=== PATIENT | female | born 1970 | race Two or more races ===

== ENCOUNTER 2024-02-27 20:14 | Inpatient (IN) | payer OTHER ==
[~2024-02-27] VITALS: Ht 157.5 cm; Wt 49.9 kg
[2024-02-27 20:29] LABS: HEMATOCRIT 46.9 % (36.0-45.00); HEMOGLOBIN 16.1 g/dL (12.0-15.00); MEAN CORPUSCULAR HEMOGLOBIN 32.3 pg (27.00-32.0); MEAN CORPUSCULAR HGB CONC 34.3 g/dl (32.0-36.0); PLATELET COUNT 345 K/uL (150-450); RED BLOOD COUNT 4.99 M/uL (4.00-6.00)
[2024-02-27] MEDS ORDERED: 0.9 % SODIUM CHLORIDE 1,000 ML IV SCH (20:30)
[2024-02-27] MEDS ORDERED: FAMOtidine 10 MG/ML (4ML VIAL) IV ONE (20:30)
[2024-02-27] MEDS ORDERED: METHYLPREDNISOLONE SOD SUCC 40 MG VIAL IV ONE (20:30)
[2024-02-27] MEDS ORDERED: LEVALBUTEROL HCL 0.63 MG/3 ML SOLUTION IH SCH (20:30)
[2024-02-27] MEDS ORDERED: PIPERACILLIN/TAZOBACTAM SODIUM 4.5 GM VIAL IV ONE (20:30)
[2024-02-27 20:46] LABS: PARTIAL THROMBOPLASTIN TIME 23.5 SECONDS (22.0-34.0); PROTHROMBIN TIME 10.9 SECONDS (9.0-11.5)
[2024-02-27 20:51] LABS: ALBUMIN 4.1 gm/dL (3.4-5.0); BILIRUBIN TOTAL 0.62 mg/dL (0.3-1.2); CREATININE SERUM 0.97 mg/dL (0.55-1.02); GFR 60.3; GLOBULINA 3.7 G/DL (2.4-3.5); TOTAL PROTEIN 7.8 gm/dL (6.4-8.2)
[2024-02-27 21:06] LABS: POTASSIUM 4.08 mEq/L (3.5-5.1)
--- NOTE | 2024-02-27 21:19 | NUR ---
SE RECIBE PTE ALERTA Y ORIENTADA EN AMBULANCIA LA CUAL REFIERE VENIR POR POR NEAR DROWNING EN PLAYA. SE OBSERVA A PTE [place] ORACIONES COMPLETAS AL MOMENTO DE TRIAGE. SE MIDEN S/V A PTE, PTE SATURANDO 82% CON CN COLOCADA POR PERSONAL PARAMEDICO. PTE SE OBSERVA CON ABDOMEN DISTENDIDO. PTE SE UBICA EN UNIDAD DE CHEST PAIN Y SE CONECTA A MONITOR CARDIACO.
[2024-02-27] MEDS ORDERED: PIPERACILLIN/TAZOBACTAM SODIUM 3.375 GM VIAL IV STA (21:20)
--- NOTE | 2024-02-27 21:33 | NUR ---
SE RECIBE A PACIENTE FEMENINA ALERTA Y ORIENTADA X3 EN AREA DE CHEST PAIN. SE CONECTA A MONITOR CARDIACO Y OXIMETRIA CONTINUA. SE EDUCA A FAMILIAR Y PACIENTE SOBRE PROCESO DE DEVIKA DE MUESTRAS, CANALIZACION Y ADMINISTRACION DE MEDICAMENTOS, REFIEREN ENTENDER. SE CANALIZA A PACIENTE CON #2O EN RT ARM Y SE TEOFILO MUESTRAS DE LABORATORIO BAJO MEDIDAS ASEPTICAS. TERAPIA RESPIRATORIA REALIZA ABGS Y COLOCA TERAPIAS. PACIENTE PENDIENTE A CT YA NOTIFICADO.
[2024-02-27 22:05] LABS: HEMATOCRIT 42.2 % (36.0-45.00); HEMOGLOBIN 14.8 g/dL (12.0-15.00); MEAN CELL VOLUME 91.7 fL (80.00-100.00); MEAN CORPUSCULAR HEMOGLOBIN 32.1 pg (27.00-32.0); PLATELET COUNT 278 K/uL (150-450); RED BLOOD COUNT 4.61 M/uL (4.00-6.00); RED CELL DISTRIBUTION WIDTH 13.7 % (11.5-14.5)
[2024-02-27 22:18] LABS: ALBUMIN 3.7 gm/dL (3.4-5.0); BILIRUBIN TOTAL 0.35 mg/dL (0.3-1.2); CALCIUM 8.4 mg/dL (8.5-10.1); CREATININE SERUM 0.9 mg/dL (0.55-1.02); GFR 65.75; GLOBULINA 2.9 G/DL (2.4-3.5); POTASSIUM 4.09 mEq/L (3.5-5.1); TOTAL PROTEIN 6.6 gm/dL (6.4-8.2)
[2024-02-27 22:21] LABS: INR 1.01; PARTIAL THROMBOPLASTIN TIME 23.3 SECONDS (22.0-34.0)
[2024-02-27 22:32] LABS: ABG PH 7.231 (7.35-7.45); ABG pCO2 29.5 mmHg (35-45); BASE EXCESS -13.9 mmol/l; BICARBONATE 12.1 mmol/l (23-25); SaO2 85.2 %; allen test SATISFACTORY; o2 32 %; puncture site RADIAL RIGHT
[2024-02-27] MEDS ORDERED: ONDANSETRON HCL 2 MG/ML VIAL IV ONE (23:00)
[2024-02-27] MEDS ORDERED: BUTALB/ACETAMINOPHEN/CAFFEINE 1 TAB TABLET PO ONE (23:15)
--- NOTE | 2024-02-28 00:07 | NUR ---
SE RECIBE PTE ALERTA Y ORIENTADA X3 EN CAMA BAJA CON BARANDAS ELEVADAS. SE OBSERVA NONREBREATHING MASK, LA CUAL TOLERA AL MOMENTO. CONECTADA A MONITOR CARDIACO Y SATUROMETRO. CANALIZADA EN MANO DERECHA CON ANGIO #20 PATENTE SEEMA DE EDEMA Y ENROJECIMIENTO, RECIBIENDO .9NSS BAJANDO A 100MLS/HR. PENDIENTE CT HEAD Y CHEST YA NOTIFICADOS. SE NOTIFICAN ABG A MS. ESPINO A LAS 11:30PM.
[2024-02-28] MEDS ORDERED: METHYLPREDNISOLONE SOD SUCC 125 MG VIAL IV STA (00:25)
[2024-02-28] MEDS ORDERED: ALBUTEROL SULFATE 3 ML/2.5 MG AMPUL.NEB IH SCH ×2 (01:14→17:00)
[2024-02-28 01:18] LABS: URINE APPEARANCE Turbid; URINE BILIRRUBIN Negative (NEGATIVE); URINE BLOOD Negative; URINE COLOR Yellow; URINE GLUCOSE Negative (NEGATIVE); URINE KETONE Trace (NEGATIVE); URINE LEUKOCYTE Negative; URINE NITRATE Negative; URINE PROTEIN 30 (NEGATIVE); URINE UROBILINOGEN 0.2 E.U./dl
[2024-02-28 01:47] LABS: URINE BACTERIA 98.2 uL (0.0-1933); URINE CAST 4.73 uL (0.0-1.40); URINE EPITHELIAL CELLS 18.7 uL (0.0-38.8); URINE RBC 9.1 uL (0.0-20.8); URINE WBC 7.4 uL (0.0-23.2)
[2024-02-28] MEDS ORDERED: METHYLPREDNISOLONE SOD SUCC 125 MG VIAL IV SCH (06:00)
[2024-02-28] MEDS ORDERED: PIPERACILLIN/TAZOBACTAM SODIUM 3.375 GM in 0.9 % SODIUM CHLORIDE 100 ML IV SCH (07:23)
--- NOTE | 2024-02-28 10:20 | NUR ---
SE RECIBE PTE DEL TURNO ANTERIOR ALERTA Y ORIENTADA X3 EN LA UNIDAD DE CHEST PAIN MONICA DE EMERGENCIA UBUCADA EN CAMA #17 CON BARANDAS ELEVADAS CONECTADA A MONITOR CARDIACO Y OXIMETRIA CONTINUA EN POSICION [place] NESTOR. PTE CANALIZADA CON ANGIO #20 EN MANO DERECHA CON IV FLUI DE 0.9NSS BAJANDO 100MLS/HR. ABDOMEN DEPRESIBLE AL TACTO. PTE CON MASCARA NON REBREATHING AL 50%. EXTREMIDADES INFERIORES SEEMA DE EDMEA. PTE ORINANDO ESPONTANEO SE MANEJA PTE Y SE UBICA EN AREA DE OBSERVACION SECCION K EN CAMA K8 CONECTADA A MONITOR CARDIACO Y OXIMETRIA CONTINUA. SE CANALIZA VENA Y SE COLOCA ZOSYN POR ORDEN MEDICA
[2024-02-28 11:23] LABS: ABG PH 7.398 (7.35-7.45); ABG PO2 76.3 mmHg (80-100); ABG pCO2 30.8 mmHg (35-45); BICARBONATE 18.6 mmol/l (23-25); SaO2 94.9 %; Tco2 19.5 mmol/l; allen test SATISFACTORY; o2 21 %; puncture site RADIAL LEFT
--- NOTE | 2024-02-28 16:16 | NUR ---
PACIENTE FEMINA ALERTA Y ORIENTADA X3, EN CAMA CON BARANDAS ELEVADAS Y EN AMARO NIVEL MAS BAJO POR PRECAUCION A CAIDS, PACIENTE CONECTADA A MONITOR CARDIACO Y OXIMETRIA DE PUL[place] CONTINUA. PACIENTE PREVIAMENTE CANALIZADA. SE OBSERVA CONECTADA A MONITOR CARDIACO Y OXIMETRIA DE PULSO CONTINUA.
[2024-02-28] MEDS ORDERED: CEFTRIAXONE SODIUM 2,000 MG in 0.9 % SODIUM CHLORIDE 100 ML IV SCH (16:51)
[2024-02-28] MEDS ORDERED: METHYLPREDNISOLONE SOD SUCC 40 MG VIAL IV SCH ×2 (17:00→20:38)
[2024-02-28] MEDS ORDERED: FAMOTIDINE/PF 20 MG in 0.9 % SODIUM CHLORIDE 100 ML IV SCH (17:00)
[2024-02-28] MEDS ORDERED: ACETAMINOPHEN 325 MG TABLET PO PRN (17:00)
[2024-02-28] MEDS ORDERED: 0.9 % SODIUM CHLORIDE 1,000 ML IV SCH (17:00)
[2024-02-29 01:40] VITALS: BP 105/55; O2SAT 100
[2024-02-29 06:12] LABS: HEMATOCRIT 35.1 % (36.0-45.00); HEMOGLOBIN 11.7 g/dL (12.0-15.00); MEAN CELL VOLUME 93.4 fL (80.00-100.00); MEAN CORPUSCULAR HEMOGLOBIN 31.2 pg (27.00-32.0); MEAN CORPUSCULAR HGB CONC 33.4 g/dl (32.0-36.0); PLATELET COUNT 197 K/uL (150-450); RED BLOOD COUNT 3.75 M/uL (4.00-6.00); RED CELL DISTRIBUTION WIDTH 13.3 % (11.5-14.5)
[2024-02-29] MEDS ORDERED: ACETAMINOPHEN 500 MG GEL..CAP PO PRN (08:00)
[2024-02-29 09:17] VITALS: BP 114/58; O2SAT 100
[2024-02-29 11:01] LABS: ABG PH 7.396 (7.35-7.45); ABG PO2 75.6 mmHg (80-100); ABG pCO2 36.2 mmHg (35-45); BASE EXCESS -2.5 mmol/l; BICARBONATE 21.8 mmol/l (23-25); SaO2 94.8 %; Tco2 22.9 mmol/l
[2024-02-29 11:02] LABS: allen test SATISFACTORY; o2 21 %; puncture site RADIAL LEFT
[2024-02-29] MEDS ORDERED: METHYLPREDNISOLONE SOD SUCC 125 MG VIAL IV SCH (12:00)
[2024-02-29] MEDS ORDERED: levoFLOXacin IN DEXTROSE 5 % 5 MG/ML PIGGYBAG IV SCH (17:00)
[2024-02-29 17:59] VITALS: BP 122/64
[2024-03-01 02:13] VITALS: BP 101/57; O2SAT 100
[2024-03-01 09:00] VITALS: BP 113/72; O2SAT 97
[2024-03-01 10:58] LABS: HEMOGLOBIN 13.4 g/dL (12.0-15.00); MEAN CELL VOLUME 93.9 fL (80.00-100.00); MEAN CORPUSCULAR HEMOGLOBIN 32.3 pg (27.00-32.0); MEAN CORPUSCULAR HGB CONC 34.4 g/dl (32.0-36.0); PLATELET COUNT 245 K/uL (150-450); RED BLOOD COUNT 4.16 M/uL (4.00-6.00); RED CELL DISTRIBUTION WIDTH 14.3 % (11.5-14.5)
[2024-03-01 19:24] VITALS: BP 127/73
[2024-03-02 03:00] VITALS: BP 138/56
[2024-03-02 06:50] LABS: HEMATOCRIT 36.4 % (36.0-45.00); HEMOGLOBIN 12.5 g/dL (12.0-15.00); MEAN CELL VOLUME 93.7 fL (80.00-100.00); MEAN CORPUSCULAR HEMOGLOBIN 32.2 pg (27.00-32.0); MEAN CORPUSCULAR HGB CONC 34.3 g/dl (32.0-36.0); PLATELET COUNT 228 K/uL (150-450); RED BLOOD COUNT 3.89 M/uL (4.00-6.00); RED CELL DISTRIBUTION WIDTH 13.7 % (11.5-14.5)
[2024-03-02 10:04] VITALS: BP 128/74; O2SAT 96
== END 2024-03-02 15:24 | disposition left against medical advice (07) | DRG 922 ==
LOC: ER 20:14 → SEC-K 02-28 18:14 → MEDI 02-28 18:14
PROVIDERS: General Practice; ADMIT Internal Medicine; ATTEND Internal Medicine
DX: T75.1XXA Unspecified effects of drowning and nonfatal submersion, initial encounter (principal); J18.9 Pneumonia, unspecified organism; Y93.9 Activity, unspecified; Y92.832 Beach as the place of occurrence of the external cause